=== PATIENT | male | born 1995 | race Hispanic/Latino ===

== ENCOUNTER 2019-10-30 13:22 | Emergency (ER) | payer OTHER ==
[~2019-10-30] VITALS: Ht 210.8 cm; Wt 113.4 kg
[~2019-10-30 13:22] MED LIST: CLEOCIN HCL150 MG PO
[2019-10-30 14:57] LABS: STREPTOCOCCUS GRP A ANTIGEN NEGATIVE (NEGATIVE)
[2019-10-30 15:09] LABS: COLOR,URINE YELLOW (YELLOW); INFLUENZAE A&B ANTIGEN (RAPID) NEGATIVE (NEGATIVE)
[2019-10-30 15:10] LABS: CLARITY,URINE SL CLOUDY (CLEAR); KETONES,URINE NEGATIVE (NEGATIVE); LEUKOCYTE ESTERASE ,URINE NEGATIVE (NEGATIVE); NITRITE,URINE NEGATIVE (NEGATIVE); PROTEIN,URINE DIPSTICK 1+ (NEGATIVE)
[2019-10-30 15:11] LABS: BILIRUBIN,URINE SMALL (NEGATIVE); URINE UROBILINOGEN 0.2 mg/dL (0.2 - 1)
[2019-10-30 15:24] LABS: EPITHELIAL CELLS,URINE RARE /LPF; MUCUS,URINE MODERATE (RARE)
== END 2019-10-30 15:57 | disposition left against medical advice (07) ==
LOC: ER 13:22
DX: R06.02 Shortness of breath (principal)
CPT/HCPCS: 81001; 83518; 87070; 87400

== ENCOUNTER 2020-08-22 22:05 | Emergency (ER) | payer OTHER ==
[~2020-08-22] VITALS: Ht 182.9 cm; Wt 129.3 kg
[2020-08-22] MEDS ORDERED: KETOROLAC TROMETHAMINE 30 MG/ML VIAL IV STA (22:19)
[2020-08-22] MEDS ORDERED: KETOROLAC TROMETHAMINE 30 MG/ML VIAL ONE (22:29)
[2020-08-22] MEDS ORDERED: SODIUM CHLORIDE 0.9% 1000ML 1,000 ML ONE ×2 (22:29→22:51)
[2020-08-22] MEDS ORDERED: SODIUM CHLORIDE 0.9% 1000ML 1,000 ML IV SCH (22:45)
[2020-08-22] MEDS ORDERED: CEFTRIAXONE SOD 1 GM/NS 50 ML 100 ML IV ONE (22:45)
[2020-08-22] MEDS ORDERED: CEFTRIAXONE SOD 500 MG VIAL ONE (22:50)
[2020-08-22] MEDS ORDERED: CEFTRIAXONE SOD 1 GM/NS 50 ML 50 ML IV ONE (22:51)
[2020-08-22] MEDS ORDERED: HYDROCODONE/APAP 5MG-325MG TAB PO ONE (23:00)
[2020-08-22] MEDS ORDERED: HYDROCODONE/APAP 5MG-325MG TAB ONE (23:24)
[2020-08-23] MEDS ORDERED: CLINDAMYCIN HC150 MG PO (00:43)
[2020-08-23] MEDS ORDERED: TYLENOL # 31 EA PO (00:45)
[2020-08-23] MEDS ORDERED: SODIUM CHLORIDE 0.9% 50ML 50 ML ONE (00:52)
[2020-08-23] MEDS ORDERED: IOPAMIDOL 370 MG/ML 200 ML INFUS..BTL INJ ONE (00:52)
== END 2020-08-23 01:02 | disposition home or self-care (01) ==
LOC: FSED 22:20
DX: L03.221 Cellulitis of neck (principal)
CPT/HCPCS: 70491; 87040; 99284; J0696 ×2; J1885; J7030; Q9967

== ENCOUNTER 2022-07-21 18:57 | Emergency (ER) | payer OTHER ==
[~2022-07-21] VITALS: Ht 188 cm; Wt 144.2 kg
[~2022-07-21 18:57] MED LIST changes: +CLINDAMYCIN HC150 MG PO; +TYLENOL # 31 EA PO
[2022-07-21] MEDS ORDERED: IBUPROFEN 400 MG TAB PO STA (19:25)
[2022-07-21] MEDS ORDERED: ONDANSETRON HCL INJ 2MG/ML 2ML 2 MG/ML VIAL IV STA (19:25)
[2022-07-21] MEDS ORDERED: SODIUM CHLORIDE 0.9% 1000ML 1,000 ML IV SCH (19:30)
[2022-07-21] MEDS ORDERED: ACETAMINOPHEN 325 MG TAB PO ONE (19:30)
[2022-07-21] MEDS ORDERED: IBUPROFEN 400 MG TAB ONE (19:53)
[2022-07-21] MEDS ORDERED: IBUPROFEN800 MG PO (21:22)
[2022-07-21] MEDS ORDERED: ONDANSETRON ODT4 MG PO (21:22)
[2022-07-21] MEDS ORDERED: BROMFED DM COU118 ML PO (21:22)
== END 2022-07-21 21:30 | disposition home or self-care (01) ==
LOC: FSED 19:14
DX: J10.1 Influenza due to other identified influenza virus with other respiratory manifestations (principal); E86.0 Dehydration; F17.200 Nicotine dependence, unspecified, uncomplicated; Z20.822 Contact with and (suspected) exposure to COVID-19
CPT/HCPCS: 71046; 83518; 87400; 99282; J2405